=== PATIENT | female | born 1970 | race Caucasian/White ===

== ENCOUNTER 2019-07-01 10:10 | Inpatient (IN) ==
[2019-07-01] MEDS ORDERED: ACETAMINOPHEN 500 MG TABLET PO STA (10:35)
[2019-07-01 11:15] LABS: Basophils % 0.1 % (0.0-0.8); Eosinophils # 0.1 10*3/uL (0.0-0.87); Eosinophils % 1.2 % (0.00-10.9); Hematocrit 42.8 VOL% (35.7-47.0); Hemoglobin 13.9 GM/DL (12.0-16.0); Immature Granulocytes % 0.4 %; Immature Granulocytes Absolute 0.03 #; Lymphocytes # 1.1 10*3/uL (1.4-4.0); Lymphocytes % 14.9 % (21.3-54.2); Mean Corpuscular HGB Conc 32.5 GM/DL (32-36); Mean Corpuscular Volume 86.5 FL (87-102); Mean Platelet Volume 9.2 FL (9.6-12.0); Neutrophils % 77.4 % (38.7-73.9); Platelet Count 279 T/CUMM (130-400); Red Blood Count 4.95 MC/CUMM (3.8-5.5); Red Cell Distribution Width 13.6 % (9.3-17.3); White Blood Count 7.4 T/CUMM (4-12)
[2019-07-01 11:24] LABS: Apearance,Urine CLEAR (Clear); Bilirubin,Urine Negative (Negative); Blood, Urine Negative (Negative); Glucose,Urine (UA) >=500 mg/dL (Negative); Ketones,Urine 5 mg/dL (Negative); Nitrite,Urine Negative (Negative); Protein,Urine Negative; RBC,Urine 1 /HPF (0-4); Squamous Epithelial Cell,Urine Occasional /HPF (0-10); Urine Color Yellow (Yellow); Urine Specific Gravity 1.005 (1.001-1.035); Urine Urobilinogen < 2.0 EU/DL (0.2-1.0)
[2019-07-01 11:33] LABS: Bilirubin,Total 0.7 MG/DL (0.2-1.0); Calcium 8.6 MG/DL (8.5-10.1); Osmolality,Calculated 275.2 MOS/KG (273-304)
[2019-07-01] MEDS ORDERED: DEXTROSE 50% 25 GM/50 ML VIAL IV PRN (12:26)
[2019-07-01] MEDS ORDERED: ONDANSETRON 4 MG/2 ML VIAL IV PRN (12:26)
[2019-07-01] MEDS ORDERED: GLUCAGON 1 MG VIAL IM PRN (12:26)
[2019-07-01] MEDS ORDERED: BENZONATATE 100 MG CAPSULE PO PRN (12:29)
[2019-07-01] MEDS ORDERED: ENOXAPARIN 40 MG/0.4 ML SYRINGE SUBCUT SCH ×2 (12:30→21:00)
[2019-07-01] MEDS ORDERED: HYDROXYCHLOROQUINE 200 MG TABLET PO SCH (13:00)
[2019-07-01] MEDS ORDERED: hydrALAZINE 20 MG/1 ML VIAL IV PRN (15:27)
[2019-07-01] MEDS ORDERED: ZINC SULFATE 220 MG CAPSULE PO SCH (15:30)
[2019-07-01] MEDS: SODIUM CHLORIDE 0.9% 1,000 ML IV SCH ×2 (15:45→21:35)
[2019-07-01] MEDS: INSULIN LISPRO 100 UNIT/ML SUBCUT SCH ×2 (18:03→21:35)
[2019-07-01] MEDS: glipiZIDE 10 MG TABLET PO SCH (21:34)
[2019-07-01] MEDS: guaiFENesin/DM ER 600-30 MG TABLET PO SCH (21:34)
[2019-07-02 06:00] LABS: Basophils % 0.4 % (0.0-0.8); Eosinophils # 0.1 10*3/uL (0.0-0.87); Hematocrit 42.5 VOL% (35.7-47.0); Hemoglobin 13.2 GM/DL (12.0-16.0); Immature Granulocytes % 0.4 %; Immature Granulocytes Absolute 0.02 #; Lymphocytes # 1.1 10*3/uL (1.4-4.0); Lymphocytes % 20.6 % (21.3-54.2); Mean Corpuscular HGB Conc 31.1 GM/DL (32-36); Mean Corpuscular Volume 89.7 FL (87-102); Mean Platelet Volume 9.5 FL (9.6-12.0); Monocytes % 5.4 % (1.7-12.7); Neutrophils % 72.2 % (38.7-73.9); Platelet Count 274 T/CUMM (130-400); Red Blood Count 4.74 MC/CUMM (3.8-5.5); Red Cell Distribution Width 13.5 % (9.3-17.3); White Blood Count 5.2 T/CUMM (4-12)
[2019-07-02 06:17] LABS: Calcium 8.6 MG/DL (8.5-10.1); Osmolality,Calculated 277.8 MOS/KG (273-304)
[2019-07-02] MEDS ORDERED: MAGNESIUM SULF RIDER 4 GM in PREMIX 1 EACH IV PRN (07:16)
[2019-07-02] MEDS ORDERED: MAGNESIUM SULF RIDER 2 GM in PREMIX 1 EACH IV PRN (07:16)
[2019-07-02] MEDS ORDERED: ZINC SULFATE 220 MG CAPSULE PO SCH (09:00)
[2019-07-02] MEDS: glipiZIDE 10 MG TABLET PO SCH ×2 (09:11→21:19)
[2019-07-02] MEDS: INSULIN LISPRO 100 UNIT/ML SUBCUT SCH ×4 (09:11→21:19)
[2019-07-02] MEDS: guaiFENesin/DM ER 600-30 MG TABLET PO SCH ×2 (10:16→21:19)
[2019-07-02] MEDS: SODIUM CHLORIDE 0.9% 1,000 ML IV SCH (10:16)
[2019-07-02] MEDS: guaiFENesin 200 MG/10 ML UDCUP PO PRN ×2 (10:17→18:04)
[2019-07-02] MEDS ORDERED: HYDROXYCHLOROQUINE 200 MG TABLET PO SCH (13:00)
[2019-07-02] MEDS: ENOXAPARIN 40 MG/0.4 ML SYRINGE SUBCUT SCH (18:00)
[2019-07-02] MEDS: ZINC SULFATE 220 MG CAPSULE PO SCH (18:06)
[2019-07-02] MEDS: HYDROXYCHLOROQUINE 200 MG TABLET PO SCH (18:06)
[2019-07-03] MEDS: guaiFENesin 200 MG/10 ML UDCUP PO PRN ×2 (00:12→06:12)
[2019-07-03] MEDS: HYDROXYCHLOROQUINE 200 MG TABLET PO SCH ×2 (06:12→21:08)
[2019-07-03] MEDS: INSULIN LISPRO 100 UNIT/ML SUBCUT SCH ×4 (08:32→21:07)
[2019-07-03] MEDS: glipiZIDE 10 MG TABLET PO SCH ×2 (09:36→21:07)
[2019-07-03] MEDS: guaiFENesin/DM ER 600-30 MG TABLET PO SCH ×2 (09:36→21:08)
[2019-07-03] MEDS: ENOXAPARIN 40 MG/0.4 ML SYRINGE SUBCUT SCH (09:37)
[2019-07-03] MEDS: BENZONATATE 100 MG CAPSULE PO PRN (21:42)
[2019-07-04] MEDS: guaiFENesin 200 MG/10 ML UDCUP PO PRN (04:20)
[2019-07-04 05:52] LABS: Basophils % 0.2 % (0.0-0.8); Eosinophils % 0.5 % (0.00-10.9); Hematocrit 36.7 VOL% (35.7-47.0); Hemoglobin 11.7 GM/DL (12.0-16.0); Immature Granulocytes % 0.5 %; Immature Granulocytes Absolute 0.04 #; Lymphocytes # 1.1 10*3/uL (1.4-4.0); Lymphocytes % 13.9 % (21.3-54.2); Mean Corpuscular HGB Conc 31.9 GM/DL (32-36); Mean Corpuscular Volume 87.6 FL (87-102); Monocytes % 6.5 % (1.7-12.7); Neutrophils % 78.4 % (38.7-73.9); Platelet Count 318 T/CUMM (130-400); Red Blood Count 4.19 MC/CUMM (3.8-5.5); Red Cell Distribution Width 13.5 % (9.3-17.3); White Blood Count 8.1 T/CUMM (4-12)
[2019-07-04 06:21] LABS: Calcium 8.3 MG/DL (8.5-10.1); Osmolality,Calculated 272.8 MOS/KG (273-304)
[2019-07-04] MEDS: INSULIN LISPRO 100 UNIT/ML SUBCUT SCH ×4 (10:09→20:42)
[2019-07-04] MEDS: glipiZIDE 10 MG TABLET PO SCH ×2 (11:05→20:42)
[2019-07-04] MEDS: ENOXAPARIN 40 MG/0.4 ML SYRINGE SUBCUT SCH (11:05)
[2019-07-04] MEDS: guaiFENesin/DM ER 600-30 MG TABLET PO SCH ×2 (11:05→20:42)
[2019-07-04] MEDS: ZINC SULFATE 220 MG CAPSULE PO SCH (11:05)
[2019-07-04] MEDS: HYDROXYCHLOROQUINE 200 MG TABLET PO SCH ×2 (11:05→20:43)
[2019-07-04] MEDS: BENZONATATE 100 MG CAPSULE PO PRN (20:43)
[2019-07-05] MEDS: guaiFENesin 200 MG/10 ML UDCUP PO PRN (00:20)
[2019-07-05] MEDS: HYDROXYCHLOROQUINE 200 MG TABLET PO SCH (08:54)
[2019-07-05] MEDS: ENOXAPARIN 40 MG/0.4 ML SYRINGE SUBCUT SCH (08:54)
[2019-07-05] MEDS: glipiZIDE 10 MG TABLET PO SCH (08:54)
[2019-07-05] MEDS: guaiFENesin/DM ER 600-30 MG TABLET PO SCH (08:54)
[2019-07-05] MEDS: INSULIN LISPRO 100 UNIT/ML SUBCUT SCH ×2 (09:08→11:50)
[2019-07-05] MEDS: BENZONATATE 100 MG CAPSULE PO PRN (09:40)
[2019-07-05 13:43] VITALS: BP 124/84
== END 2019-07-05 13:30 | disposition home or self-care (01) | DRG 177 ==
LOC: N.ED 10:10 → SUATTDRO 12:26 → N.EDINP 12:26 → SUPCPDRO 12:26 → N.2W 15:00
PROVIDERS: ADMIT Family Medicine; ATTEND Internal Medicine